=== PATIENT | female | born 1945 | race Two or more races ===

== ENCOUNTER → 2024-11-14 | Outpatient (CLI) | payer MEDICARE ==
[2024-11-15 15:11] LABS: CA19-9 TUMOR MARKER,CARBOHYDRA 11.2 U/ML (<35.0)
== END ==
LOC: M PLALAB 14:54
PROVIDERS: ATTEND Specialist
DX: N83.9 Noninflammatory disorder of ovary, fallopian tube and broad ligament, unspecified (principal); R97.0 Elevated carcinoembryonic antigen [CEA]; R97.8 Other abnormal tumor markers